=== PATIENT | female | born 1955 | race Caucasian/White ===

== ENCOUNTER 2025-07-19 06:58 | Day surgery (SDC) | payer MEDICARE ==
[~2025-07-19 06:58] MED LIST: Epinephrine Preservative Free 1 MG/ML ONE
[2025-07-19] MEDS ORDERED: CEFAZOLIN SODIUM ONE (07:26)
[2025-07-19] MEDS ORDERED: Decadron 4 MG ONE (07:47)
[2025-07-19] MEDS ORDERED: Lactated Ringers 1,000 ML IV ONE (07:47)
[2025-07-19] MEDS ORDERED: celeBREX 100 MG ONE (07:47)
[2025-07-19] MEDS ORDERED: TYLENOL EXTRA STRENGTH 500 MG ONE (07:47)
[2025-07-19] MEDS: Lactated Ringers 1,000 ML IV SCH (07:52)
[2025-07-19] MEDS: celeBREX 100 MG PO ONE (07:52)
[2025-07-19] MEDS: TYLENOL EXTRA STRENGTH 500 MG PO ONE (07:52)
[2025-07-19] MEDS: Decadron 4 MG PO ONE (07:53)
[2025-07-19 09:00] LABS: Calcium 9.6 mg/dL (8.4-10.2); Carbon Dioxide 24.0 mmol/L (22-30); Creatinine 1 1.94 mg/dL (0.52-1.04); EST GLOMERULAR FILTRATION RATE 27.4 ML/MIN; Glucose 110.0 mg/dL (74-106); Potassium 4.5 mmol/L (3.5-5.1)
[2025-07-19] MEDS ORDERED: Marcaine Mpf 0.5% Vial 30 Ml ONE (09:09)
[2025-07-19] MEDS ORDERED: EXPAREL 133 MG/10 ML VIAL IJ ONE (09:09)
[2025-07-19] MEDS ORDERED: ROCURONIUM BROMIDE IV ONE (09:11)
[2025-07-19] MEDS ORDERED: Zofran 4 MG/2 ML VIAL ONE (09:11)
[2025-07-19] MEDS ORDERED: propofoL IV ONE (09:11)
[2025-07-19] MEDS ORDERED: Versed 2 MG/2 ML Injection ONE (09:12)
[2025-07-19] MEDS ORDERED: Xylocaine-Mpf 2% 5 Ml Vial ONE (09:12)
[2025-07-19] MEDS ORDERED: SUBLIMAZE 100 MCG/2 ML ONE (09:12)
[2025-07-19] MEDS ORDERED: Pre-Attached Lta Kit TP ONE (09:52)
[2025-07-19] MEDS ORDERED: Ephedrine Sulfate 50 MG/ML ONE (10:05)
[2025-07-19] MEDS ORDERED: PHENYLEPHRINE HCL ONE (10:10)
[2025-07-19] MEDS ORDERED: PHENYLEPHRINE HCL 10 MG in Dextrose 5%/Water IV Soln. 250 ML 249 ML IV PRN (10:17)
[2025-07-19] MEDS ORDERED: BRIDION 200MG/2ML IV ONE (11:14)
[2025-07-19 13:28] VITALS: BP 118/68; PULSE 84; RESP 18; TEMP 97.8; O2SAT 90
--- NOTE | 2025-07-19 16:24 | OP ---
SURGERY DATE/TIME: 07/19/2025 1155 PREOPERATIVE DIAGNOSES: 1) Right shoulder rotator cuff tear. 2) Biceps tendinosis. POSTOPERATIVE DIAGNOSES: 1) Right shoulder rotator cuff tear. 2) Biceps tendinosis. PROCEDURE: 1) Right shoulder arthroscopy with subacromial decompression. 2) Arthroscopic biceps tenotomy. 3) Mini-open rotator cuff repair. SURGEON: Josué Petty MD. INDUSTRIAL CHEMIST: None. ANESTHESIA: General. COMPLICATIONS: None. ESTIMATED BLOOD LOSS: 10 mL. INDICATIONS: The patient is a 70-year-old female who injured her right shoulder approximately 5 to 6 months ago. She presented with persistent anterior lateral shoulder pain. An MRI was obtained which revealed evidence of high-grade partial tearing versus full-thickness tearing of the rotator cuff supraspinatus as well as evidence of advanced biceps tendinosis and medial dislocation of the tendon. We discussed options, and she wanted to proceed with a right shoulder arthroscopy with possible rotator cuff repair, possible biceps tenotomy, subacromial decompression. I explained risks associated with the procedure, including but not limited to infection, pain, bleeding, damage to surrounding structures, stiffness, failure to improve pain, failure of the repair, arthritis, and need for further procedures. After explaining all risks, benefits, and alternative treatment options, she desired to proceed with surgery. DESCRIPTION OF PROCEDURE AND FINDINGS: The patient was taken to the operating room and placed in the supine position. IV antibiotics were administered, and general anesthesia was administered as well. She was then placed in the beach chair position. The right shoulder and upper extremity were then prepped and draped in standard sterile fashion. A standard posterior portal was created and then the arthroscope was inserted into the shoulder joint. An anterior portal was created as well. Examination of the glenohumeral joint revealed minimal changes with chondromalacia involving the glenoid. There was significant biceps tendon fraying and tendinosis, as well as degeneration of the anterior labrum. A biceps tenotomy was performed using the coblation wand. The degenerative labral tissue was debrided as well. The rotator cuff was inspected from inside the joint and there was at least high-grade partial tearing which was evident. The arthroscope was inserted into the subacromial space. A lateral portal was created, and the coblation wand was inserted through the lateral portal. The periosteum and bursal tissue were removed from the undersurface of the acromion. The bursectomy was completed using the coblation wand as well as the mechanical shaver. There was a slight anterior curve to the acromion. The rotator cuff was inspected and probed and there was indeed noted to be a full-thickness tear anteriorly measuring a little over 1 cm. The greater tuberosity was prepared. The bur was placed through the lateral portal and the acromioplasty was started with a bur through the lateral portal. The acromioplasty was completed with a bur through the posterior portal. The lateral incision was extended proximally to about the level of the acromion. Dissection was carried down and the rotator cuff tear was identified. A [employer] 2.0 mm Jug[employer]not All-Suture anchor was implanted into the greater tuberosity. The anchor had 2 sutures attached. The scorpion was used to place mattress sutures through the rotator cuff using both sutures from the anchor. The sutures were tied down, bringing the rotator cuff nicely down to bone. An excellent repair was obtained. Following this, a [employer] patch was laid over the repair. The deltoid was then approximated with 3-0 Vicryl sutures. The subcutaneous tissue for the incisions were closed with 3-0 Vicryl sutures and the skin was closed with 3-0 nylon sutures. A sterile dressing was then applied, as well as an arm sling. The patient was then awakened from anesthesia and taken to the recovery room in stable condition.
== END 2025-07-19 13:05 | disposition home or self-care (01) ==
LOC: SDC 06:58
PROVIDERS: ATTEND Orthopaedic Surgery
DX: M75.101 Unspecified rotator cuff tear or rupture of right shoulder, not specified as traumatic (principal); M67.813 Other specified disorders of tendon, right shoulder